=== PATIENT | female | born 1995 | race Caucasian/White ===

== ENCOUNTER → 2019-02-28 | Outpatient (CLI) | payer OTHER ==
[2019-02-28 18:26] LABS: BASO % 0.3 % (0.0-1.0); EOS # 0.5 10^3/uL (0.0-0.5); EOS % 4.2 % (0.0-3.0); HEMATOCRIT 39.2 % (36.0-47.0); HEMOGLOBIN 13.1 g/dl (12.0-15.5); LYMPH # 1.7 10^3/uL (1.5-5.0); LYMPH % 14.5 % (24.0-44.0); MEAN CORPUSCULAR HEMOGLOBIN 29.1 pg (27.0-33.0); MEAN CORPUSCULAR HGB CONC 33.4 g/dl (32.0-36.5); MEAN CORPUSCULAR VOLUME 87.1 fl (80.0-96.0); MONO # 0.8 10^3/uL (0.0-0.8); NEUTROPHILS # 8.4 10^3/uL (1.5-8.5); NEUTROPHILS % 73.6 % (36.0-66.0); PLATELET COUNT, AUTOMATED 294 10^3/uL (150-450); WHITE BLOOD COUNT 11.4 10^3/uL (4.0-10.0)
[2019-02-28 20:15] LABS: CHLAMYDIA DNA AMPLIFICATION NEGATIVE (NEGATIVE); GC DNA AMPLIFICATION NEGATIVE (NEGATIVE)
[2019-03-01 11:33] LABS: HIV 1&2 SCREEN CENTAUR NEGATIVE (NEGATIVE); RUBELLA IgG QUALITATIVE IMMUNE (IMMUNE)
== END ==
LOC: M PLALAB 13:34
PROVIDERS: ATTEND Advanced Practice Midwife
DX: Z34.80 Encounter for supervision of other normal pregnancy, unspecified trimester (principal)

== ENCOUNTER → 2019-03-11 | Outpatient (CLI) | payer OTHER | LOC: M WHC 10:59 | PROVIDERS: ATTEND Advanced Practice Midwife | DX: Z34.02 Encounter for supervision of normal first pregnancy, second trimester (principal) ==

== ENCOUNTER → 2019-04-05 | Outpatient (CLI) | payer OTHER ==
--- NOTE | 2019-04-06 05:12 | REP ---
Clinical: Anatomical evaluation. Comparison: None . Findings: Examination demonstrates a single live intrauterine in cephalic presentation. motion is identified by technologist. Placenta is noted posterior and grade I without evidence for placenta previa or abruption. Amniotic fluid volume is normal. Cervix measures 4.2 cm in length and appears closed. No evidence for nuchal cord. Gestational age by current measurements 18 weeks 6 days with KALEE 08/31/2019 . FHR equals 158 beats per minute. BPD 4.4 cm 19 weeks 2 days HC 16.1 cm 18 weeks 6 days AC 12.8 cm 18 weeks 3 days FL 3.0 cm 19 weeks 2 days HL 2.8 cm 19 weeks 0 days HC/AC ratio 1.26 Estimated weight 259 grams ( 46 percentile). Anatomical assessment demonstrates normal structures including cranium, choroid plexus, cavum, cerebellum/posterior fossa, diaphragm, stomach, cord insertion/three-vessel cord, kidneys/bladder, spine, and extremities. Impression: Single live intrauterine in cephalic presentation demonstrating appropriate estimated weight. 2. Limited evaluation of the facial features and heart/ventricular outflow tract. Remainder of the anatomical assessment is complete and normal.
== END ==
LOC: M WHC 13:54
PROVIDERS: ATTEND Advanced Practice Midwife
DX: Z34.02 Encounter for supervision of normal first pregnancy, second trimester (principal)

== ENCOUNTER → 2019-04-05 | Outpatient (CLI) | payer OTHER | LOC: M PLALAB 15:24 | PROVIDERS: ATTEND Advanced Practice Midwife | DX: Z13.79 Encounter for other screening for genetic and chromosomal anomalies (principal) ==

== ENCOUNTER → 2019-05-03 | Outpatient (CLI) | payer OTHER ==
--- NOTE | 2019-05-03 11:57 | REP ---
Obstetric ultrasound for anatomy follow-up: On the prior study of 04/05 2019 suboptimally demonstrated were the facial profile, four-chamber view of the heart and cardiac right and left ventricular outflow tracts. The remainder of the anatomy was adequately demonstrated and unremarkable. On the study today the facial profile, four-chamber view of the heart and cardiac right and left ventricular outflow tracts are adequately demonstrated and are unremarkable. The remainder of the anatomy was unremarkable previously. There are no anomalies. There is a single intrauterine gestation in a breech presentation. There is movement and cardiac activity. The heart rate is 161 beats per minute. The placenta is posterior pleura. There is no previa. The placenta is grade 1. The amniotic fluid volume subjectively normal. The cervix measures 4.3 cm length. heart rate is 161 beats per minute. Gestational age by today's ultrasound is 22 weeks 3 days. Gestational age by the first ultrasound is 22 weeks 6 days. The KALEE based on gestational age of 0.2 weeks 6 days is a 08/31/2019. weight is 552 grams/1 pound, 3 ounces. This is the 49th percentile for 22-week 6 days. Electronically Signed by Yann Hensley MD 05/03/2019 11:48 A
== END ==
LOC: M WHC 09:51
PROVIDERS: ATTEND Specialist
DX: Z34.82 Encounter for supervision of other normal pregnancy, second trimester (principal); Z3A.22 22 weeks gestation of pregnancy

== ENCOUNTER → 2019-05-26 | Outpatient (REF) | payer OTHER ==
[2019-05-26 18:07] LABS: HEMATOCRIT 37.5 % (36.0-47.0); HEMOGLOBIN 12.4 g/dl (12.0-15.5); MEAN CORPUSCULAR HEMOGLOBIN 31.2 pg (27.0-33.0); MEAN CORPUSCULAR HGB CONC 33.1 g/dl (32.0-36.5); MEAN CORPUSCULAR VOLUME 94.5 fl (80.0-96.0); PLATELET COUNT, AUTOMATED 298 10^3/uL (150-450); RED BLOOD COUNT 3.97 10^6/uL (4.00-5.40); WHITE BLOOD COUNT 13.4 10^3/uL (4.0-10.0)
== END ==
LOC: M PLALAB 14:02
PROVIDERS: ATTEND Specialist
DX: Z34.02 Encounter for supervision of normal first pregnancy, second trimester (principal)

== ENCOUNTER → 2019-08-02 | Outpatient (REF) | payer OTHER ==
[~2019-08-02] MED LIST: COLA100C5 PO; MULTTAB20 PO; OMEP10CASR PO; PROAAER10 INH
== END ==
LOC: M SFHCWAGY 16:44
PROVIDERS: ATTEND Specialist
DX: Z34.03 Encounter for supervision of normal first pregnancy, third trimester (principal)

== ENCOUNTER → 2019-08-03 | Outpatient (REF) | payer OTHER ==
[2019-08-03 13:48] LABS: HEMATOCRIT 37.2 % (36.0-47.0); HEMOGLOBIN 12.3 g/dl (12.0-15.5); MEAN CORPUSCULAR HEMOGLOBIN 29.9 pg (27.0-33.0); MEAN CORPUSCULAR HGB CONC 33.1 g/dl (32.0-36.5); MEAN CORPUSCULAR VOLUME 90.5 fl (80.0-96.0); PLATELET COUNT, AUTOMATED 272 10^3/uL (150-450); RED BLOOD COUNT 4.11 10^6/uL (4.00-5.40)
[2019-08-03 14:18] LABS: ALT/SGPT 16 U/L (12-78); BILIRUBIN,TOTAL 0.3 MG/DL (0.2-1.0); GLOMERULAR FILTRATION RATE > 60.0 (>60); LDH LACTATE DEHYDROGENASE 178 U/L (84-246); URIC ACID 4.8 MG/DL (2.6-6.0)
[2019-08-03 14:19] LABS: CREATININE,RANDOM URINE 40.9 MG/DL; TOTAL PROTEIN,RANDOM URINE 11.8 MG/DL (0.0-12.0)
== END ==
LOC: M PLALAB 11:29
PROVIDERS: ATTEND Specialist
DX: Z34.03 Encounter for supervision of normal first pregnancy, third trimester (principal); O14.94 Unspecified pre-eclampsia, complicating childbirth

== ENCOUNTER → 2019-08-20 | Outpatient (CLI) | payer OTHER ==
[~2019-08-20] MED LIST changes: +AMOX500C PO; +DOCU100C16 PO; +IBUP80TA PO; +PERCOCET PO
== END ==
LOC: M LABSMTC 08:07
PROVIDERS: ATTEND Anesthesiology
DX: Z03.818 Encounter for observation for suspected exposure to other biological agents ruled out (principal); Z11.59 Encounter for screening for other viral diseases
CPT/HCPCS: C9803; U0003

== ENCOUNTER 2019-08-23 05:32 | Inpatient (IN) | payer OTHER ==
[2019-08-23] VITALS (9 sets, daily range): BP systolic 106–124; BP diastolic 57–80
[~2019-08-23] VITALS: Ht 160 cm; Wt 99.7 kg
[~2019-08-23 05:32] MED LIST changes: -AMOX500C PO; -DOCU100C16 PO; -IBUP80TA PO; -PERCOCET PO
[2019-08-23] MEDS ORDERED: LR 1,000 ML IV ONE (07:15)
[2019-08-23] MEDS ORDERED: ceFAZolin SOD 2 GM in IV 1 EA IV ONE (07:15)
[2019-08-23] MEDS ORDERED: BICITRA 30ML SOLN UDC PO ONE (07:15)
[2019-08-23] MEDS ORDERED: LR 1,000 ML IV SCH (07:15)
[2019-08-23 07:27] LABS: HEMATOCRIT 37.2 % (36.0-47.0); HEMOGLOBIN 12.6 g/dl (12.0-15.5); MEAN CORPUSCULAR HEMOGLOBIN 30.3 pg (27.0-33.0); MEAN CORPUSCULAR HGB CONC 33.9 g/dl (32.0-36.5); MEAN CORPUSCULAR VOLUME 89.4 fl (80.0-96.0); PLATELET COUNT, AUTOMATED 280 10^3/uL (150-450); RED BLOOD COUNT 4.16 10^6/uL (4.00-5.40)
[2019-08-23] MEDS ORDERED: METOCLOPRAMIDE INJ 10MG/2ML VIAL (J2765 PER 1) IV PRN (07:56)
[2019-08-23] MEDS ORDERED: NALOXONE INJ 0.4MG/1ML VIAL (J2310 PER 1MG) IV PRN ×2 (07:56)
[2019-08-23] MEDS ORDERED: ONDANSETRON 4MG/2ML VIAL IV PRN ×3 (07:56→09:30)
[2019-08-23] MEDS ORDERED: diphenhydrAMINE 50MG/ML VIAL (J1200) IV PRN ×2 (07:56→09:30)
[2019-08-23] MEDS ORDERED: NALBUPHINE HCL 10 MG/ML AMP (J2300) IV PRN (07:56)
[2019-08-23] MEDS ORDERED: OXYTOCIN DRIP 30 UNITS in IV 1 EA IV SCH (08:10)
[2019-08-23] MEDS ORDERED: dexameTHASONE 4 MG/ML 1ML VIAL (J1100 PER 1MG) As Ordered ONE (08:13)
[2019-08-23] MEDS ORDERED: KETOROLAC 60MG 2ML VIAL As Ordered ONE (08:13)
[2019-08-23] MEDS ORDERED: ONDANSETRON 4MG/2ML VIAL As Ordered ONE (08:13)
[2019-08-23] MEDS ORDERED: ePHEDrine SULFATE 25 MG/5 ML(5MG/ML) SYRINGE As Ordered ONE (08:13)
[2019-08-23] MEDS ORDERED: OXYTOCIN 30 UNITS IN 0.9% NaCl 500ML IV BAG (J2590) As Ordered ONE (08:13)
[2019-08-23] MEDS ORDERED: PHENYLephrine HCL 500 MCG/5 ML (100MCG/ML) SYRINGE (J2370) As Ordered ONE (08:13)
[2019-08-23] MEDS ORDERED: MORPHINE PRES-FREE INJ 10 MG/10 ML VIAL (J2274) As Ordered ONE (08:13)
[2019-08-23] MEDS ORDERED: RHOGAM 300 MCG (1500 IU) INJ (J2790) IM SCH (08:15)
[2019-08-23] MEDS ORDERED: MEASLES,MUMPS,RUBELLA VACCINE INJ (MMR-II) (90707) SC SCH (08:15)
[2019-08-23] MEDS ORDERED: MOM 30ML SUSPENSION UDC PO PRN (08:15)
--- NOTE | 2019-08-23 09:08 | ROOPDOC ---
[facility] Report Of Operation Report of Operation DATE OF PROCEDURE: 08/23/19 SURGEON: Annette Navarro M.D. SHIPPING/RECEIVING MANAGER: Isabella Piedra CNM ANESTHESIA: Spinal PREOPERATIVE DIAGNOSIS: 1. History of chronic back pain and herniated disc 2. Intrauterine at 39 weeks 3. Elective primary section POSTOPERATIVE DIAGNOSIS: 1. History of chronic back pain and herniated disc 2. Intrauterine at 39 weeks 3. Elective primary section ESTIMATED BLOOD LOSS: 500 mL URINE OUTPUT: 275 mL INTRAVENOUS FLUIDS: 1 L of lactated Ringer solution PREOPERATIVE ANTIBIOTICS:. 2 g of Ancef OPERATIVE FINDINGS: Liveborn male , Apgars 9 and 9. Weight was 3780 g or 8 lbs. 5 oz. SPECIMENS:. Cord blood DESCRIPTION OF PROCEDURE: After informed consent was obtained and written consent was reviewed. The patient was brought to the operating room where spinal anesthesia was placed. She was then placed in the supine position with a left lateral tilt. Amato catheter was placed and to gravity. Patient was then prepped and draped in the normal sterile fashion. A timeout operating room was performed identifying the patient, procedure be performed as well as drug allergies. Anesthesia was tested and deemed to be adequate. Pfannenstiel skin incision was made and this was carried down to the underlying rectus fascia. The fascia was then scored and this incision was extended bilaterally. The fascia was then dissected off the underlying rectus muscle superiorly and inferiorly. The rectus muscles were then in the midline. The peritoneum is then entered. Vesicouterine peritoneum was then tented and excised and a bladder flap was created. Mobius retractor was then placed. Next, a curvilinear incision was then made in the lower uterine segment. Amniotomy was performed, productive, clear fluid. The head was brought to the level of the incision atraumatically and delivered along the shoulders and corpus. The cord was clamped x2. The infant was brought over to the warmer with a good cry. Placenta was drained and delivered grossly intact. The uterus was cleared of all clots and debris and the uterine incision was then closed in 2 layers using 0 Vicryl, first in a running locking fashion followed by second layer for imbrication. The abdomen suctioned. Surgical sites reinspected and noted be hemostatic. The retractor was then removed. The anterior peritoneum was then reapproximated with 3-0 Vicryl. The rectus muscles were reapproximated 3-0 Vicryl. The fascia was then closed using 0 Vicryl in a running nonlocking fashion. The subcutaneous tissues was then irrigated and suctioned. Subcutaneous tissue was reapproximated using 3-0 Vicryl. Several subdermal stitch is placed using 3-0 Vicryl and the skin was closed with 4-0 Monocryl and subcuticular fashion. This incision was then cleaned and dried and was dressed. The patient was then taken to recovery in stable condition. All counts were correct. My surgical instruments inspector Jayne Piedra played in an essential role during the operation. They assisted with tissue identification retraction, delivery of the , as well as wound closure. ANNETTE NAVARRO MD. Aug 23, 2019 09:08
[2019-08-23] MEDS ORDERED: MEPERIDINE INJ 25 MG/ML VIAL (J2175) IV PRN (09:30)
[2019-08-23] MEDS ORDERED: fentaNYL 100 MCG/2 ML INJECTION (J3010) IV PRN (09:30)
[2019-08-23] MEDS ORDERED: HYDROMORPHONE HCL 0.5 MG/ 0.5 ML SYRINGE (J1170 PER 1) IV PRN (09:30)
[2019-08-23] MEDS ORDERED: oxyCODONE 5MG TAB PO PRN (09:30)
[2019-08-23] MEDS ORDERED: oxyCODONE 5MG TAB As Ordered ONE (10:00)
[2019-08-23] MEDS: LR 1,000 ML IV SCH ×2 (12:59→16:10)
[2019-08-23] MEDS: PRENATAL VITAMINS CHEWABLE TABLET PO SCH (12:59)
[2019-08-23] MEDS: DOCUSATE SODIUM 100 MG CAP PO SCH ×2 (12:59→21:18)
[2019-08-23] MEDS: PERCOCET 5MG/325MG TAB PO PRN (14:29)
[2019-08-23] MEDS: KETOROLAC 30 MG/ML 1ML VIAL IV SCH ×2 (14:29→21:17)
[2019-08-24 02:13] VITALS: BP 100/58
[2019-08-24] MEDS: KETOROLAC 30 MG/ML 1ML VIAL IV SCH (03:10)
[2019-08-24] MEDS: PERCOCET 5MG/325MG TAB PO PRN ×4 (05:37→19:46)
[2019-08-24 05:48] VITALS: BP 113/53
[2019-08-24 06:57] LABS: HEMATOCRIT 28.5 % (36.0-47.0); MEAN CORPUSCULAR VOLUME 91.1 fl (80.0-96.0); PLATELET COUNT, AUTOMATED 224 10^3/uL (150-450); RED BLOOD COUNT 3.13 10^6/uL (4.00-5.40); WHITE BLOOD COUNT 13.1 10^3/uL (4.0-10.0)
[2019-08-24 07:05] LABS: HEMOGLOBIN 9.7 g/dl (12.0-15.5)
--- NOTE | 2019-08-24 07:36 | IPNPDOC ---
Progress Note Date of Service: Aug 24, 2019 Day#: 1 Progress Note SUBJECT: Doing well without complaints. Ambulating, voiding and pain is well- controlled. Reports minimal lochia. +breast feeding OBJECTIVE: VITAL SIGNS: Within normal limits, afebrile. Alert and oriented times three. Abdomen: Fundus firm at U-2. Soft, NTTP. Incision: Clean, dry, intact, not erythematous well approximated Ext: neg calf tenderness. ASSESSMENT: /postoperative day#1 status post primary section. Recovering in stable condition. PLAN: 1. Continue routine /postoperative care 2. Discharge plans for tomorrow VS, I&O, 24H, Fishbone Vital Signs/I&O Vital Signs Date Time Temp Pulse Resp B/P (MAP) Pulse Ox O2 Delivery O2 Flow Rate FiO2 08/24/19 06:15 18 08/24/19 05:48 97.8 88 113/53 (73) 97 Room Air l I&O- Last 24 Hours up to 6 AM 08/24/19 06:00 Intake Total 2710 ml Output Total 1675 ml Balance 1035 ml Laboratory Data 24H LABS Laboratory Tests 2 08/24/19 06:40: Nucleated Red Blood Cells % (auto) 0.0 CBC/BMP Laboratory Tests 08/24/19 06:40 RA VASQUES MD. Aug 24, 2019 07:36
[2019-08-24] MEDS: DOCUSATE SODIUM 100 MG CAP PO SCH ×2 (09:12→20:23)
[2019-08-24] MEDS: PRENATAL VITAMINS CHEWABLE TABLET PO SCH (09:12)
[2019-08-24 10:00] VITALS: BP 124/58
[2019-08-24] MEDS: IBUPROFEN 800 MG TAB PO SCH ×2 (12:29→18:34)
[2019-08-24 18:00] VITALS: BP 118/60
[2019-08-24 22:00] VITALS: BP 130/64
[2019-08-25 02:00] VITALS: BP 122/66
[2019-08-25] MEDS: IBUPROFEN 800 MG TAB PO SCH ×2 (03:12→11:46)
[2019-08-25] MEDS: PERCOCET 5MG/325MG TAB PO PRN (05:22)
[2019-08-25 06:00] VITALS: BP 116/71
[2019-08-25] MEDS: PRENATAL VITAMINS CHEWABLE TABLET PO SCH (07:56)
[2019-08-25] MEDS: DOCUSATE SODIUM 100 MG CAP PO SCH (07:56)
[2019-08-25] MEDS ORDERED: AMOXICILLIN 500 MG CAP PO SCH (09:00)
[2019-08-25] MEDS ORDERED: ONDANSETRON 4 MG TAB As Ordered ONE (09:44)
[2019-08-25 10:23] LABS: APPEARANCE, URINE HAZY (CLEAR); BACTERIA, URINE AUTO NEGATIVE (NEGATIVE); BILIRUBIN, URINE AUTO NEGATIVE (NEGATIVE); BLOOD, URINE BLOOD 3+ (NEGATIVE); COLOR, URINE YELLOW (YELLOW); GLUCOSE, URINE (UA) AUTO NEGATIVE (NEGATIVE); KETONE, URINE AUTO NEGATIVE (NEGATIVE); LEUKOCYTE ESTERASE, URINE AUTO NEGATIVE (NEGATIVE); NITRITE, URINE AUTO NEGATIVE (NEGATIVE); PROTEIN, URINE AUTO NEGATIVE (NEGATIVE); RBC, URINE AUTO 140 /HPF (0-3); SPECIFIC GRAVITY URINE AUTO 1.003 (1.002-1.035); SQUAMOUS EPITHELIAL CELL UR AU 3 /HPF (0-6); UROBILINOGEN, URINE AUTO 0.2 mg/dL (0.0-2.0); WBC, URINE AUTO 7 /HPF (0-3)
[2019-08-25] MEDS ORDERED: ONDANSETRON 4 MG TAB PO SCH (12:00)
[2019-08-25 14:16] VITALS: BP 123/68
[2019-08-25] MEDS ORDERED: AMOX500C PO (14:21)
[2019-08-25] MEDS ORDERED: IBUP80TA PO (14:21)
[2019-08-25] MEDS ORDERED: DOCU100C16 PO (14:21)
[2019-08-25] MEDS ORDERED: PERCOCET PO (14:21)
== END 2019-08-25 15:40 | disposition home or self-care (01) | DRG 773 ==
LOC: M LDI 05:32 → M OBS 10:20
PROVIDERS: ADMIT Obstetrics & Gynecology; ATTEND Obstetrics & Gynecology
PROC: 10D00Z1 Extraction of Products of Conception, Low, Open Approach (ICD-10-PCS; principal; 2019-08-23 07:30)
DX: O26.893 Other specified pregnancy related conditions, third trimester (principal); Z37.0 Single live birth; Z3A.39 39 weeks gestation of pregnancy; M51.26 Other intervertebral disc displacement, lumbar region

== ENCOUNTER → 2022-01-20 | Outpatient (CLI) | payer OTHER ==
[~2022-01-20] MED LIST changes: +AMOX500C PO; +DOCU100C16 PO; +IBUP80TA PO; +PERCOCET PO
== END ==
LOC: M LABSMTC 11:45
DX: Z01.812 Encounter for preprocedural laboratory examination (principal); Z11.52 Encounter for screening for COVID-19